=== PATIENT | male | born 1945 | race Caucasian/White ===

== ENCOUNTER 2024-08-12 14:19 | Emergency (ER) | payer OTHER ==
[~2024-08-12] VITALS: Ht 182.9 cm; Wt 81.7 kg
[~2024-08-12 14:19] MED LIST: HYOS.125 SL
[2024-08-12] MEDS ORDERED: PredniSONE 20 MG Tab PO ONE (14:35)
[2024-08-12] MEDS ORDERED: Ipratropium/Albuterol SulF 2.5-0.5MG/3 ML Amp INH ONE (14:35)
[2024-08-12] MEDS ORDERED: Prednisone20 MG PO (15:05)
[2024-08-15] MEDS ORDERED: AMLO5 PO (11:10)
[2024-08-15] MEDS ORDERED: LOSA50 PO (11:10)
[2024-08-15] MEDS ORDERED: ROSUVASTATIN CA10 MG PO (11:10)
[2024-08-20] MEDS ORDERED: Vitamin D1000 UNI1 PO (10:43)
[2024-08-20] MEDS ORDERED: ALBU90OI INH (10:51)
[2024-08-20] MEDS ORDERED: DOXY100 PO (10:53)
[2024-08-20] MEDS ORDERED: Q-Tussin100 MG/5 M PO (10:53)
== END 2024-08-12 15:43 | disposition home or self-care (01) ==
LOC: ER 14:19
DX: J44.9 Chronic obstructive pulmonary disease, unspecified (principal); J06.9 Acute upper respiratory infection, unspecified; Z79.899 Other long term (current) drug therapy
CPT/HCPCS: 71046; 94640; 94664; 99285-25; J7512

== ENCOUNTER 2024-08-14 10:25 | Inpatient (IN) | payer OTHER ==
[~2024-08-14] VITALS: Ht 175.3 cm; Wt 70.2 kg
[~2024-08-14 10:25] MED LIST changes: +Prednisone20 MG PO
[2024-08-14] MEDS ORDERED: Ondansetron HCl 2 MG / ML 2ML Vial IV ONE (11:00)
[2024-08-14] MEDS ORDERED: Ipratropium/Albuterol SulF 2.5-0.5MG/3 ML Amp INH ONE (11:00)
[2024-08-14 11:03] LABS: BASOPHILS ABSOLUTE AUTO 0.06 K/mm3 (0.00-0.23); BASOPHILS PERCENT AUTO 0 % (0-2); EOSINOPHILS ABSOLUTE AUTO 0.04 K/mm3 (0.00-0.68); EOSINOPHILS PERCENT AUTO 0 % (0-6); Hematocrit 30.7 % (37.0-53.0); Hemoglobin 10.5 g/dL (13.5-17.5); IMMATURE GRAN ABSOLUTE AUTO 0.16 K/mm3 (0.00-0.10); IMMATURE GRAN PERCENT AUTO 1 % (0-1); LYMPHOCYTES ABSOLUTE AUTO 1.45 K/mm3 (0.84-5.20); LYMPHOCYTES PERCENT AUTO 5 % (21-46); MONOCYTES ABSOLUTE AUTO 1.75 K/mm3 (0.16-1.47); MONOCYTES PERCENT AUTO 6 % (4-13); Mean Corpuscular HGB 30.6 pg (26.0-34.0); Mean Corpuscular HGB Conc 34.2 g/dL (31.5-36.5); Mean Corpuscular Volume 90 fL (80-100); Mean Platelet Volume 10.4 fL (9.1-12.4); NEUTROPHILS PERCENT AUTO 88 % (41-73); Platelet Count 247 K/mm3 (150-400); RDW Coefficient Variation 13.3 % (11.7-14.2); Red Blood Cell Count 3.43 M/mm3 (4.30-5.90); White Blood Cell Count 28.86 K/mm3 (4.00-11.30)
[2024-08-14] MEDS ORDERED: Lactated Ringer's 1,000 ML IV ONE (11:15)
[2024-08-14] MEDS ORDERED: Acetaminophen 325 MG TABLET PO ONE (11:20)
[2024-08-14] MEDS ORDERED: MethylPREDNISolone Sod Succ 125 MG Vial IV ONE (11:20)
[2024-08-14] MEDS ORDERED: Azithromycin 500 MG in NS 250 ML IV ONE (11:20)
[2024-08-14] MEDS ORDERED: CefTRIAXone Sodium 1,000 MG in NS 100 ML IV ONE ×3 (11:20→13:30)
[2024-08-14] MEDS ORDERED: NS 1,000 ML IV SCH ×2 (11:25→13:30)
[2024-08-14 11:29] LABS: Albumin/Globulin Ratio 0.9 (0.8-1.8); Bilirubin, Total 0.6 mg/dL (0.1-1.0); Bun/Creatinine Ratio 40.2 (12.0-20.0); Creatinine, Blood 1.22 mg/dL (0.60-1.20); Globulin, Blood 3.4 g/dL (2.2-4.0); Total Protein, Blood 6.4 g/dL (6.4-8.2)
[2024-08-14 12:23] LABS: CORONAVIRUS COVID-19 AG Negative (NEGATIVE); INFLUENZA A AG Negative (NEGATIVE); INFLUENZA B AG Negative (NEGATIVE)
[2024-08-14] MEDS ORDERED: Ipratropium/Albuterol SulF 2.5-0.5MG/3 ML Amp INH SCH (12:30)
[2024-08-14] MEDS ORDERED: Acetaminophen 325 MG TABLET PO PRN (12:30)
[2024-08-14] MEDS ORDERED: Prochlorperazine Edisylate 10 mg Vial IV PRN (12:35)
[2024-08-14] MEDS ORDERED: FLU VACC TS2024-25(6MOS UP)/PF 45 MCG/0.5 ML SYRINGE IM ONE (12:35)
[2024-08-14] MEDS ORDERED: Azithromycin 250 MG Tab PO SCH (13:00)
[2024-08-14 13:45] LABS: Source, Urine Clean Catch
[2024-08-14 14:10] LABS: Appearance, Urine Clear (Clear); Bilirubin, Urine Neg (Neg); Blood, Urine Neg (Neg); Glucose Qualitative, Urine Neg (Neg); Ketones, Urine Neg (Neg); Leukocyte Esterase, Urine Neg (Neg); Nitrite, Urine Neg (Neg); Protein, Urine Neg (Neg); Urobilinogen, Urine NORM (Normal)
[2024-08-14 14:49] LABS: Color, Urine Pale Yellow (P-Yellow)
[2024-08-14 18:54] VITALS: BP 136/77
[2024-08-14] MEDS ORDERED: Sennosides 8.6 MG Tab PO SCH (21:00)
[2024-08-15 02:31] VITALS: BP 124/83
--- NOTE | 2024-08-15 04:03 | NUR ---
SHIFT SUMMARY 78 YR M ADMITTED AT SHIFT CHANGE ON 08/14/24. LIMITED CODE, NO COMPRESSIONS. PT IS A&O X 4 AND INDEPENDANT IN THE ROOM. HE STATES HIS COUGH IS STARTING TO BE PRODUCTIVE AND IT IS EASIER FOR HIM TO BREATHE WHEN HE IS SITTING UP. HE HAD ONE BREATHING TX WITH RT THROUGHOUT THE NIGHT. @ 1940 THIS NURSE WAS INFORMED BY LAB THAT PT HAd LACTIC ACID LEVEL OF 2.5. HOSPITALIST WAS NOTIFIED. WILL CONTINUE TO MONITOR. BED IN LOW POSITION AND CALL LIGHT IN REACH.
[2024-08-15 05:20] LABS: BASOPHILS ABSOLUTE AUTO 0.03 K/mm3 (0.00-0.23); BASOPHILS PERCENT AUTO 0 % (0-2); EOSINOPHILS PERCENT AUTO 0 % (0-6); Hemoglobin 8.7 g/dL (13.5-17.5); IMMATURE GRAN ABSOLUTE AUTO 0.18 K/mm3 (0.00-0.10); IMMATURE GRAN PERCENT AUTO 1 % (0-1); LYMPHOCYTES ABSOLUTE AUTO 1.19 K/mm3 (0.84-5.20); LYMPHOCYTES PERCENT AUTO 5 % (21-46); MONOCYTES ABSOLUTE AUTO 1.01 K/mm3 (0.16-1.47); MONOCYTES PERCENT AUTO 4 % (4-13); Mean Corpuscular HGB 30.1 pg (26.0-34.0); Mean Corpuscular HGB Conc 33.5 g/dL (31.5-36.5); Mean Corpuscular Volume 90 fL (80-100); Mean Platelet Volume 10.8 fL (9.1-12.4); NEUTROPHILS PERCENT AUTO 90 % (41-73); Platelet Count 216 K/mm3 (150-400); RDW Coefficient Variation 13.6 % (11.7-14.2); RDW Standard Deviation 45.1 fL (35.1-46.3); Red Blood Cell Count 2.89 M/mm3 (4.30-5.90); White Blood Cell Count 23.51 K/mm3 (4.00-11.30)
[2024-08-15 06:31] LABS: Calcium, Blood 8.4 mg/dL (8.5-10.1); Creatinine, Blood 1.08 mg/dL (0.60-1.20); Potassium, Blood 3.8 mmol/L (3.5-5.5)
[2024-08-15 07:08] VITALS: BP 110/77
[2024-08-15] MEDS ORDERED: NS 1,000 ML IV SCH (08:15)
[2024-08-15] MEDS ORDERED: CefTRIAXone Sodium 2,000 MG in NS 100 ML IV SCH (09:00)
[2024-08-15] MEDS ORDERED: Enoxaparin 40 MG/0.4 ML SYR SC SCH (09:00)
[2024-08-15 09:33] LABS: Percent Saturation 4.7 % (20.0-50.0)
[2024-08-15] MEDS ORDERED: ROSUVASTATIN CA10 MG PO ×2 (11:10)
[2024-08-15] MEDS ORDERED: LOSA50 PO ×2 (11:10)
[2024-08-15] MEDS ORDERED: AMLO5 PO ×2 (11:10)
[2024-08-15] MEDS ORDERED: Iron Dextran 50 MG / ML 2ML Vial IV ONE (13:00)
[2024-08-15] MEDS ORDERED: DiphenhydrAMINE HCl 50 MG/ML 1ML Vial IV ONE (13:45)
[2024-08-15] MEDS ORDERED: Iron Dextran 975 MG in NS 250 ML IV ONE (14:00)
[2024-08-15 16:31] VITALS: BP 112/65
[2024-08-15 16:44] VITALS: BP 113/75
--- NOTE | 2024-08-15 17:47 | NUR ---
SHIFT SUMMARY PT A&OX4, VSS, ON 2L O2 NC, AMB IND, TOLERATING PO, VOIDING, AND DENIED PAIN. IV IRON INFUSED PER ORDER. NO OTHER ACUTE CHANGES. CALL LIGHT WITHIN REACH AND PT ABLE TO MAKE NEEDS KNOWN.
[2024-08-15 19:52] VITALS: BP 126/67
[2024-08-16 03:58] VITALS: BP 122/79
[2024-08-16 05:47] LABS: BASOPHILS ABSOLUTE AUTO 0.03 K/mm3 (0.00-0.23); BASOPHILS PERCENT AUTO 0 % (0-2); EOSINOPHILS ABSOLUTE AUTO 0.02 K/mm3 (0.00-0.68); EOSINOPHILS PERCENT AUTO 0 % (0-6); Hematocrit 23.9 % (37.0-53.0); Hemoglobin 8.1 g/dL (13.5-17.5); IMMATURE GRAN ABSOLUTE AUTO 0.13 K/mm3 (0.00-0.10); IMMATURE GRAN PERCENT AUTO 1 % (0-1); LYMPHOCYTES ABSOLUTE AUTO 1.48 K/mm3 (0.84-5.20); LYMPHOCYTES PERCENT AUTO 12 % (21-46); MONOCYTES PERCENT AUTO 7 % (4-13); Mean Corpuscular HGB 30.7 pg (26.0-34.0); Mean Corpuscular HGB Conc 33.9 g/dL (31.5-36.5); Mean Corpuscular Volume 91 fL (80-100); Mean Platelet Volume 10.9 fL (9.1-12.4); NEUTROPHILS ABSOLUTE AUTO 9.81 K/mm3 (1.96-9.15); NEUTROPHILS PERCENT AUTO 80 % (41-73); Platelet Count 210 K/mm3 (150-400); RDW Coefficient Variation 13.9 % (11.7-14.2); RDW Standard Deviation 46.2 fL (35.1-46.3); Red Blood Cell Count 2.64 M/mm3 (4.30-5.90); White Blood Cell Count 12.27 K/mm3 (4.00-11.30)
[2024-08-16 06:10] LABS: Magnesium, Blood 1.8 mg/dL (1.6-2.4); Phosphorus, Blood 2.2 mg/dL (2.5-4.9); Potassium, Blood 3.6 mmol/L (3.5-5.5)
[2024-08-16 07:25] VITALS: BP 151/99
--- NOTE | 2024-08-16 07:49 | NUR ---
Rn summary: Patient is alert and oriented. He is very delightful to take care of. At the beginning of shift pt felt SOB, states he has not been eating much because he feels like he is not able to fill his lungs. He is able to speak in full sentences. Lungs are crackles upper lobes and course crackles in bases. O2 2l room air is bases line. Pt does have a cough, some greenish mucus. Pt has pain Rt lower quad from coughing. Pt was given tylenol 650mg for generalized discomfort. He states he was able to rest more last night. He states this am he has not void except for a few dribbles. Bladder scan done 456cc retained. Order for straight cath. Pt staight caths at home and wanted to do it himself. He had no difficulty and cathed for 550 med yellow urine. Pt is able to walk independantly to bathroom. Report given to Day shift RN.
[2024-08-16] MEDS ORDERED: Thiamine HCl 100 MG Tab PO SCH (09:00)
[2024-08-16] MEDS ORDERED: Cholecalciferol 1000 Unit Tablet (=25MCG) PO SCH (09:00)
[2024-08-16] MEDS ORDERED: Albuterol 2.5 MG/3 ML VIAL INH PRN (10:45)
[2024-08-16] MEDS ORDERED: Cyanocobalamin 1000 MCG/ML 1ML Vial IM SCH (11:00)
[2024-08-16 14:39] VITALS: BP 142/84
--- NOTE | 2024-08-16 16:58 | NUR ---
SHIFT SUMMARY PT A&OX4. PT ADMITTED DUE TO PNEUMONIA. PT REPORTS NO PAIN. PT REPORTS "NOT GETTING ENOUGH AIR TO COMFORTABLY EAT." PT ON 1L VIA N/C, PT SPO2 IS 94%. VSS. HELD LOVENOX THIS AM DUE TO HBG 8.1. GAVE A DOSE OF B-12 IM INJECTION DURING SHIFT. 125ML/HR NORMAL SALINE D/C'D. PT HAS ORDERS TO BE UP IN CHAIR 2 TIMES A DAY. PT REPORTS BEING TIRED, PT WAS UP IN CHAIR FOR LUNCH AND DINNER. RESPIRATORY CARE CAME BY FOR TREATMENT. PT REPORTS NO CHEST PAIN/DISCOMFORT. 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 PT VOIDING ADEQUATE. PT BED IN LOWEST POSITION. CALLS APPROPRIATE. CALL LIGHT IN REACH. PT RECEIVED IV ANTIBIOTIC THIS AM.
[2024-08-16 21:16] VITALS: BP 145/93
[2024-08-17 02:50] VITALS: BP 108/72
--- NOTE | 2024-08-17 04:11 | NUR ---
No acute changes over night. Patient AxO x4. Patient straight cath x1. Patient denies chest pain, SOB, and N/V. Patient on RA. Patient IND to bathroom. Patient slept through out the night. Will continue to monitor until day shift resumes cares.
[2024-08-17 06:47] LABS: BASOPHILS ABSOLUTE AUTO 0.03 K/mm3 (0.00-0.23); BASOPHILS PERCENT AUTO 0 % (0-2); EOSINOPHILS ABSOLUTE AUTO 0.12 K/mm3 (0.00-0.68); EOSINOPHILS PERCENT AUTO 1 % (0-6); Hematocrit 25.3 % (37.0-53.0); Hemoglobin 8.6 g/dL (13.5-17.5); IMMATURE GRAN ABSOLUTE AUTO 0.14 K/mm3 (0.00-0.10); IMMATURE GRAN PERCENT AUTO 1 % (0-1); LYMPHOCYTES PERCENT AUTO 10 % (21-46); MONOCYTES ABSOLUTE AUTO 0.93 K/mm3 (0.16-1.47); MONOCYTES PERCENT AUTO 7 % (4-13); Mean Corpuscular HGB 30.6 pg (26.0-34.0); Mean Corpuscular Volume 90 fL (80-100); Mean Platelet Volume 11.3 fL (9.1-12.4); NEUTROPHILS ABSOLUTE AUTO 10.35 K/mm3 (1.96-9.15); NEUTROPHILS PERCENT AUTO 81 % (41-73); NRBC ABSOLUTE 0.02 K/mm3 (0.00-0.02); NRBC Auto 0.2 /100 WBC (0.0-0.2); Platelet Count 289 K/mm3 (150-400); RDW Coefficient Variation 13.7 % (11.7-14.2); RDW Standard Deviation 45.4 fL (35.1-46.3); Red Blood Cell Count 2.81 M/mm3 (4.30-5.90); White Blood Cell Count 12.87 K/mm3 (4.00-11.30)
[2024-08-17 07:17] LABS: Bun/Creatinine Ratio 16.8 (12.0-20.0); Calcium, Blood 8.4 mg/dL (8.5-10.1); Creatinine, Blood 0.89 mg/dL (0.60-1.20); Magnesium, Blood 1.7 mg/dL (1.6-2.4); Phosphorus, Blood 2.2 mg/dL (2.5-4.9); Potassium, Blood 3.4 mmol/L (3.5-5.5)
[2024-08-17 07:32] VITALS: BP 136/92
[2024-08-17] MEDS ORDERED: Folic Acid 1 MG TAB PO SCH (09:00)
[2024-08-17 14:51] VITALS: BP 118/77
--- NOTE | 2024-08-17 18:40 | NUR ---
SHIFT SUMMARY PT A&OX4. PT ADMITTED DUE TO PNEUMONIA. PT REPORTS NO PAIN. PT ON 2L VIA N/C, SPO2 IS 96% VSS. HELD LOVENOX THIS AM DUE TO HBG BEING 8.6. GAVE DOSE OF B-12 IM INJECTION DURING SHIFT. PT UP INDEPENDENT IN ROOM. RESPIRATORY CARE CAME BY FOR TREATMENT. PT REPORTS NO CHEST PAIN/DISCOMFORT. PT IN BED. BED IN LOWEST POSITION, CALLS APPROPRIATE. CALL LIGHT IN REACH. PT RECEIVED ANTIBIOTICS TODAY. PT HAS HACKING COUGH WITH MUCUS PRODUCTION. NO NEW ACUTE CHANGES.
[2024-08-17 19:26] VITALS: BP 113/69
[2024-08-18 04:23] VITALS: BP 110/63
--- NOTE | 2024-08-18 05:03 | NUR ---
No Acute changes over night. Patient rested through out the night. Patient on 2L O2 NC. Patient denies SOB, Chest Pain, and N/V. Patient IND. Will continue to monitor until day shifts resumes cares.
[2024-08-18 06:02] LABS: BASOPHILS ABSOLUTE AUTO 0.04 K/mm3 (0.00-0.23); BASOPHILS PERCENT AUTO 0 % (0-2); EOSINOPHILS ABSOLUTE AUTO 0.11 K/mm3 (0.00-0.68); EOSINOPHILS PERCENT AUTO 1 % (0-6); Hematocrit 25.5 % (37.0-53.0); Hemoglobin 8.5 g/dL (13.5-17.5); IMMATURE GRAN ABSOLUTE AUTO 0.16 K/mm3 (0.00-0.10); IMMATURE GRAN PERCENT AUTO 1 % (0-1); LYMPHOCYTES ABSOLUTE AUTO 1.37 K/mm3 (0.84-5.20); LYMPHOCYTES PERCENT AUTO 11 % (21-46); MONOCYTES ABSOLUTE AUTO 1.19 K/mm3 (0.16-1.47); MONOCYTES PERCENT AUTO 10 % (4-13); Mean Corpuscular HGB 30.1 pg (26.0-34.0); Mean Corpuscular HGB Conc 33.3 g/dL (31.5-36.5); Mean Corpuscular Volume 90 fL (80-100); Mean Platelet Volume 10.1 fL (9.1-12.4); NEUTROPHILS ABSOLUTE AUTO 9.62 K/mm3 (1.96-9.15); NEUTROPHILS PERCENT AUTO 77 % (41-73); Platelet Count 299 K/mm3 (150-400); RDW Coefficient Variation 13.5 % (11.7-14.2); Red Blood Cell Count 2.82 M/mm3 (4.30-5.90); White Blood Cell Count 12.49 K/mm3 (4.00-11.30)
[2024-08-18 06:28] LABS: Bun/Creatinine Ratio 16.4 (12.0-20.0); Calcium, Blood 8.6 mg/dL (8.5-10.1); Creatinine, Blood 0.85 mg/dL (0.60-1.20); Magnesium, Blood 1.9 mg/dL (1.6-2.4); Phosphorus, Blood 2.2 mg/dL (2.5-4.9); Potassium, Blood 3.4 mmol/L (3.5-5.5)
[2024-08-18 07:42] VITALS: BP 125/81
[2024-08-18] MEDS ORDERED: Potassium Phosphate Dibasic 30 MM in Dextrose 5% 500 ML IV STA (08:21)
--- NOTE | 2024-08-18 09:00 | NUR ---
Pt sitting up on the side of the bed, awake, a/ox4, pleasant and cooperative with care, follows commands well, denies pain, lungs have course exp wheeze, dim in bases, resp even and unlabored, no cough noted, hrr, tele in place running sr per monitor, see strip, no edema noted, ppp+1, cap refill <3 sec, vs stable, afebrile, piv to lfa site is clear and patent, btx4 reports loose stools and declined stool softender, voids without diff, skin c/w/d, maew, sid, call light in reach.
[2024-08-18 15:09] VITALS: BP 132/93
--- NOTE | 2024-08-18 19:06 | NUR ---
Pt recieved hos this shift, states he got a h/a from it, tylenol was administered, he continues to have a productive cough, moves himself around the room indep, no further changes this shift. call light in reach.
[2024-08-18 20:12] VITALS: BP 143/97
[2024-08-19 03:21] VITALS: BP 144/99
--- NOTE | 2024-08-19 05:02 | NUR ---
No acute changes over night. Patient denies chest pain, SOB and N/V. Patient currently on RA. Patient IND. Will continue to monitor until day shift resumes cares.
[2024-08-19 06:18] LABS: Bun/Creatinine Ratio 14.3 (12.0-20.0); Calcium, Blood 8.4 mg/dL (8.5-10.1); Creatinine, Blood 0.84 mg/dL (0.60-1.20); Magnesium, Blood 1.7 mg/dL (1.6-2.4); Phosphorus, Blood 2.4 mg/dL (2.5-4.9); Potassium, Blood 3.4 mmol/L (3.5-5.5)
[2024-08-19 07:37] VITALS: BP 125/90
[2024-08-19] MEDS ORDERED: Potassium Phosphate Dibasic 30 MM in Dextrose 5% 500 ML IV STA (07:46)
--- NOTE | 2024-08-19 08:16 | NUR ---
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
[2024-08-19] MEDS ORDERED: NS 250 ML IV PRN (13:15)
[2024-08-19 15:31] VITALS: BP 124/90
--- NOTE | 2024-08-19 19:20 | NUR ---
Pt had an uneventful day today, recieved kphos, new piv was placed to lfa, tolerated well, no further changes this shift. call light in reach.
[2024-08-19 19:40] VITALS: BP 133/74
[2024-08-19 23:31] LABS: GASTRIC PARIETAL CELL AB,IGG 1.4 Units (0.0-24.9)
[2024-08-20 03:22] VITALS: BP 132/85
--- NOTE | 2024-08-20 03:54 | NUR ---
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 LIMITED CODE STATUS. PT A&O X4, MAKES NEEDS KNOWN. INDEPENDENT WITH CARES IN ROOM. VSS. SATS MAINTAINED ABOVE 90% ON RA. OCCASIONAL PRODUCTIVE COUGH WITH THICK GREEN SPUTUM. PLAN IS TO D/C TODAY. CALL LIGHT IN REACH. BED IN LOWEST POSITION. CARES ONGOING ORDERED.
[2024-08-20 07:05] LABS: Bun/Creatinine Ratio 13.4 (12.0-20.0); Calcium, Blood 8.2 mg/dL (8.5-10.1); Creatinine, Blood 0.82 mg/dL (0.60-1.20); Magnesium, Blood 1.7 mg/dL (1.6-2.4); Phosphorus, Blood 2.7 mg/dL (2.5-4.9); Potassium, Blood 3.7 mmol/L (3.5-5.5)
[2024-08-20 07:29] VITALS: BP 137/88
[2024-08-20] MEDS ORDERED: Vitamin D1000 UNI1 PO ×2 (10:43)
[2024-08-20] MEDS ORDERED: ALBU90OI INH ×2 (10:51)
[2024-08-20] MEDS ORDERED: Q-Tussin100 MG/5 M PO ×2 (10:53)
[2024-08-20] MEDS ORDERED: DOXY100 PO ×2 (10:53)
== END 2024-08-20 11:26 | disposition home or self-care (01) | DRG 871 ==
LOC: ER 10:25 → MEDS 12:29 → ERHOLD 12:29 → MEDS 18:43
PROVIDERS: Family Medicine; Internal Medicine; ADMIT Internal Medicine
DX: A41.9 Sepsis, unspecified organism (principal); J18.9 Pneumonia, unspecified organism; E44.0 Moderate protein-calorie malnutrition; N17.9 Acute kidney failure, unspecified; R65.20 Severe sepsis without septic shock; D50.9 Iron deficiency anemia, unspecified; E87.6 Hypokalemia; E83.39 Other disorders of phosphorus metabolism; J44.9 Chronic obstructive pulmonary disease, unspecified; Z79.51 Long term (current) use of inhaled steroids; Z87.19 Personal history of other diseases of the digestive system; Z87.891 Personal history of nicotine dependence; Z79.52 Long term (current) use of systemic steroids; Z79.899 Other long term (current) drug therapy; Z98.890 Other specified postprocedural states; Z68.22 Body mass index [BMI] 22.0-22.9, adult; Z28.21 Immunization not carried out because of patient refusal
CPT/HCPCS: 36415; 71046; 80048; 80053; 81003; 82306; 82607; 82728; 82746; 83516; 83540; 83550; 83605; 83735; 84100; 84484; 85025; 85379; 87040; 87428-QW; 93005; 93010; 94640; 94664; 94760; 99285-25; A9270; J0456; J0696; J1200; J1750; J2919; J3420; J7030; J7050; J7060